=== PATIENT | female | born 1950 | race Caucasian/White ===

== ENCOUNTER 2021-12-20 18:33 | Emergency (ER) | payer OTHER ==
--- OUTSIDE RECORDS SUMMARY | 2021-12-20 18:37 | XMS REPORT | Continuity of Care Document ---
:1950 Author Organization [facility] t Address [address] [place] [address] Dr. Hussein [address] [place] [address] Care Team Providers Name Role Phone Rodriguez Marley Primary Care Physician Lyric GONGORA Attending Clinician Unavailable Doctor Unassigned, Name Attending Clinician Unavailable VAUGHN Attending Clinician Unavailable JEANNETTE Attending Clinician Unavailable NORIS Attending Clinician Unavailable Attending Clinician Unavailable MD MIKE Attending Clinician Unavailable IRIS Attending Clinician Unavailable Lyric Gongora MD Attending Clinician Only, Test Attending Clinician Unavailable Jose Patel MD Attending Clinician JORDAN Attending Clinician Unavailable VIOLETA ALONSO Attending Clinician Unavailable DALTON Attending Clinician Unavailable BELL Attending Clinician Unavailable Lyric GONGORA Admitting Clinician Unavailable Admitting Clinician Unavailable MD NATHALIE Admitting Clinician Unavailable Lyric Gongora MD Admitting Clinician VYAN Admitting Clinician Unavailable VIOLETA ALONSO Admitting Clinician Unavailable DALTON Admitting Clinician Unavailable BELL Admitting Clinician Unavailable Payers Payer Name Policy Type Policy Number Effective Date Expiration Date S reza MEDICARE PART A [id number] 2017 \T\ B 00:00:00 [place] AND [id number] 2017 [employer] 00:00:00 [facility] [id number] Problems Condition Condition Condition Status Onset Resolution Last Treating Co mments Source Name Details Category Date Date Treatment Clinician Date Acute Acute Disease Active 2018-09 Univers diastolic diastolic 2-10 [place]y [place] heart 00 Medical failure failure Branch Atrial Atrial Disease Active 2018-09 Univers fibrillati fibrillati 2-09 it y of on with on with 00:00: [place] rapid rapid Medical ventricula ventricula Br anch r response r response Other Other Disease Active 2018-09 Univers chest pain chest pain 2- it y of 00:00: [place] 00 Medical Branch Acute Acute Disease Active 2018-09 Univers bronchitis bronchitis 2 it y of due to due to 00:00: [place] other other 00 Medical specified specified Bran ch organisms organisms Type 2 Type 2 Disease Active 2018-09 Univers diabetes diabetes 2- ity of mellitus mellitus 00:00: [place] without without 00 Medical complicati complicati Br anch on, on, without without long-term long-term current current use of use of insulin insulin Essential Essential Disease Active 2018-09 Uni vers hypertensi hypertensi 2- it y of on on 00:00: [place] 00 Medical Branch Morbid Morbid Disease Active 2018-09 Univers obesity obesity 2 ity of 00:00: [place] 00 Medical Branch 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 10-01 ity of 00:00: [place] 00 Medical Branch Left ankle Left ankle Disease Active U nivers pain pain 06-03 ity of 00:00: [place] 00 Medical Branch Allergies, Adverse Reactions, Alerts Allergy Allergy Status Severity Reaction(s) Onset Inactive Treating Comm ents Source Name Type Date Date Clinician TRAMADOL DRUG Active Rash 2018-09 Univers -ACETAMI - ity of NOPHEN 00:00: [place] 00 Medical Branch Tramadol Propensi Active Rash 2018-09 Univer s -Acetami ty to 10-01 ity of nophen adverse 00:00: [place] reaction 00 Medical s Branch Penicill Propensi Active Rash Unknown, Univ ers ins ty to 06-03 has not ity of adverse 00:00: had in a [place] reaction 00 long time Medic al s 06/03/15 Branch PENICILL Drug Active Rash Univers INS Class 06-03 ity of 00:00: [place] 00 Medical Branch Social History Social Habit Start Date Stop Date Quantity Comments Source Exposure to Not sure [facility] SARS-CoV-2 [place] Medical (event) Branch Alcohol intake 2020-07-29 2020-07-29 Current University of 00:00:00 00:00:00 non-drinker of [facility] alcohol Branch (finding) History [facility] 2019-08-02 2019-08-02 2 University o f Transport Non-Med 00:00:00 00:00:00 [place] M edical Branch History [facility] 2019-08-02 2019-08-02 5 University o f Financial 00:00:00 00:00:00 [place] [facility] History [facility] Food 2019-08-02 2019-08-02 1 Univers ity of Worry 00:00:00 00:00:00 [place] [facility] History [facility] Food 2019-08-02 2019-08-02 1 Univers ity of Scarcity 00:00:00 00:00:00 [place] [facility] History [facility] 2019-08-02 2019-08-02 2 University o f Transport Med 00:00:00 00:00:00 [place] Medic [facility] Tobacco use and 2015-06-03 2015-06-03 Never used Universit y of exposure 00:00:00 00:00:00 [facility] Sex Ass[birth year] Universit y of 00:00:00 00:00:00 [facility] Smoking Status Start Date Stop Date Source Never smoker [facility] Medications Ordered Filled Start Stop Current Ordering Indication Dosage Frequency Signature Comments Components Source Medication Medication Date Date Medication? Clinician (SIG) Name Name METFORMIN 2019-09 Yes Take by Univ ers HCL 1-18 mouth. ity of (METFORMIN 16:15: [place] ORAL) [address] [place] [address] Branch atorvastati 2019-09 Yes 20mg Take 20 mg Univers n (LIPITOR) 1-18 by mouth ity of 20 mg 16:15: at [place] tablet 51 bedtime. Medical Branch ASPIRIN 2019-09 Yes 81mg Take 81 mg Univ ers ORAL 1-18 by mouth. ity of 16:15: [address] biotin 2019-09 Yes Take by Univers 1,000 mcg 1-18 mouth. ity of Chew 16:15: [address] water for 2019-09 Yes PRN, Univers irrigation 1-18 Starting ity o f irrigation 14:44: Wed [place] solution 00 07/28/20 Medical at 0844, Branch Until Discontinu ed, Routine, Intra-op simethicone 2019-09 Yes PRN, Univer s (GAS RELIEF 1-18 Starting ity of (SIMETHICON 14:44: Sun [place] E)) 40 00 07/28/20 Medical mg/0.6 mL at 0844, Branch drops Until Discontinu ed, Routine, Intra-op lactated 2019-09 2020- No 1000mL at 42 Unive rs ringers IV 1-18 11-18 mL/hr, ity of infusion 14:00: 13:53 1,000 mL, Rajat as 1,000 mL 00 :00 IV Medical Infusion, Branch ONCE, 1 dose, Sun07/28/20 at 0800, Routine, DSU Pre-op METFORMIN 2019-09 Yes Take by Univ ers HCL 1-18 mouth. ity of (METFORMIN 10:15: [place] ORAL) 51 Medical Branch atorvastati 2019-09 Yes 20mg Take 20 mg Univers n (LIPITOR) 1-18 by mouth ity of 20 mg 10:15: at [place] tablet 51 bedtime. Medical Branch ASPIRIN 2019-09 Yes 81mg Take 81 mg Univ ers ORAL 1-18 by mouth. ity of 10:15: [address] biotin 2019-09 Yes Take by Univers 1,000 mcg 1-18 mouth. ity of Chew 10:15: [address] METFORMIN 2019-09 Yes Take by Univ ers HCL 1-16 mouth. ity of (METFORMIN 15:48: [place] ORAL) 12 Medical Branch atorvastati 2019-09 Yes 20mg Take 20 mg Univers n (LIPITOR) 1-16 by mouth ity of 20 mg 15:48: at [place] tablet 12 bedtime. Medical Branch ASPIRIN 2019-09 Yes 81mg Take 81 mg Univ ers ORAL 1-16 by mouth. ity of 15:48: [place] [address] Medical [place] biotin 2019-09 Yes Take by Univers 1,000 mcg 1-16 mouth. ity of Chew 15:48: [address] METFORMIN 2018-09 Yes Take by Univ ers HCL 2-17 mouth. ity of (METFORMIN 05:00: [place] ORAL) 38 Medical Branch atorvastati 2018-09 Yes 20mg Take 20 mg Univers n (LIPITOR) 2-17 by mouth ity of 20 mg 05:00: at [place] tablet 38 bedtime. Medical Branch ASPIRIN 2018-09 Yes 81mg Take 81 mg Univ ers ORAL 2-17 by mouth. ity of 05:00: [place] [address] Medical Branch biotin 2018- Yes Take by Univers 1,000 mcg 2-17 mouth. ity of Chew 05:00: [place] [address] Medical Branch METFORMIN 2018-09 Yes Take by Univ ers HCL 2-17 mouth. ity of ([facility]FORMIN [facility]:00: [place] [facility] at[facility] 2018-09 Yes 20mg Take 20 mg Univers n (LIPITOR) 2-17 by mouth ity of 20 mg 05:00: at [place] tablet 38 bedtime. Medical Branch ASPIRIN 2018-09 Yes 81mg Take 81 mg Univ ers ORAL 2-17 by mouth. ity of 05:00: [place] [address] Medical Branch biotin 2018- Yes Take by Univers 1,000 mcg 2-17 mouth. ity of Chew 05:00: [address] METFORMIN 2018-09 Yes Take by Univ ers HCL 2-17 mouth. ity of (METFORMIN 05:00: [place] [address] Branch atorvastati 2018-09 Yes 20mg Take 20 mg Univers n (LIPITOR) 2-17 by mouth ity of 20 mg 05:00: at [place] tablet bedtime. Medical Branch ASPIRIN 2018-09 Yes 81mg Take 81 mg Univ ers ORAL 2-17 by mouth. ity of 05:00: [place] [address] Medical Branch biotin 2018-09 Yes Take by Univers 1,000 mcg 2-17 mouth. ity of Chew 05:00: [address] Branch insulin 2018- Yes [id number] 15U inject 15 Univers glargine 2-17 Units ity of 100 unit/mL 00:00: under the [place] injection 00 skin Medical daily. Branch insulin 2019- Yes [id number] 15U inject 15 Univers glargine 2-17 Units ity of 100 unit/mL 00:00: under the [place] injection 00 skin Medical daily. Branch insulin 2019- Yes [id number] 15U inject 15 Univers glargine 2-17 Units ity of 100 unit/mL 00:00: under the [place] injection 00 skin Medical daily. Branch insulin 2018- Yes [id number] 15U inject 15 Univers glargine 2-17 Units ity of 100 unit/mL 00:00: under the [place] injection 00 skin Medical daily. Branch insulin 2018-09 Yes [id number] 15U inject 15 Univers glargine 2-17 Units ity of 100 unit/mL 00:00: under the [place] injection 00 skin Medical daily. [place] insulin 2018-09 Yes [id number] 15U inject 15 Univers glargine 2-17 Units ity of 100 unit/mL 00:00: [place] the [place] injection 00 skin Medical daily. [place] ipratropium 2018-09 Yes [id number] 3mL Inhale 3 Univers -albuterol 2-16 mL 4 ity of 0.5 mg-3 00:00: (four) [place] mg(2.5 mg 00 times Medical base)/3 mL daily as Branc h nebulizer needed for solution Wheezing, Shortness of Breath, Bronchospa sm or Chest tightness. ipratropium 2018-09 Yes [id number] 3mL Inhale 3 Univers -albuterol 2-16 mL 4 ity of 0.5 mg-3 00:00: (four) [place] mg(2.5 mg 00 times Medical base)/3 mL daily as Branc h nebulizer needed for solution Wheezing, Shortness of Breath, Bronchospa sm or Chest tightness. ipratropium 2018-09 Yes [id number] 3mL Inhale 3 Univers -albuterol 2-16 mL 4 ity of 0.5 mg-3 00:00: (four) [place] mg(2.5 mg 00 times Medical base)/3 mL daily as Branc h nebulizer needed for solution Wheezing, Shortness of Breath, Bronchospa sm or Chest tightness. ipratropium 2018-09 Yes [id number] 3mL Inhale 3 Univers -albuterol 2-16 mL 4 ity of 0.5 mg-3 00:00: (four) [place] mg(2.5 mg 00 times Medical base)/3 mL daily as Branc h nebulizer needed for solution Wheezing, Shortness of Breath, Bronchospa sm or Chest tightness. ipratropium 2018-09 Yes [id number] 3mL Inhale 3 Univers -albuterol 2-16 mL 4 ity of 0.5 mg-3 00:00: (four) [place] mg(2.5 mg 00 times Medical base)/3 mL daily as Branc h nebulizer needed for solution Wheezing, Shortness of Breath, Bronchospa sm or Chest tightness. ipratropium 2019- Yes [id number] 3mL Inhale 3 Univers -albuterol 2-16 mL 4 ity of 0.5 mg-3 00:00: (four) [place] mg(2.5 mg 00 times Medical base)/3 mL daily as Branc h nebulizer needed for solution Wheezing, Shortness of Breath, Bronchospa sm or Chest tightness. amLODIPine Yes TAKE 1 Unive rs 10 mg 6-02 TABLET BY ity of tablet 00:00: MOUTH ONCE [place] DAILY Medical Branch amLODIPine Yes TAKE 1 Unive rs 10 mg 6-02 TABLET BY ity of tablet 00:00: MOUTH ONCE [place] DAILY Medical Branch amLODIPine Yes TAKE 1 Unive rs 10 mg 6-02 TABLET BY ity of tablet 00:00: MOUTH ONCE [place] DAILY Medical Branch amLODIPine Yes TAKE 1 Unive rs 10 mg 6-02 TABLET BY ity of tablet 00:00: MOUTH ONCE [place] DAILY Medical Branch amLODIPine Yes TAKE 1 Unive rs 10 mg 6-02 TABLET BY ity of tablet 00:00: MOUTH ONCE [place] DAILY Medical Branch amLODIPine Yes TAKE 1 Unive rs 10 mg 6-02 TABLET BY ity of tablet 00:00: MOUTH ONCE [place] DAILY [facility] Branch Immunizations Ordered Filled Immunization Date Status Comments [facility] e Immunization Name Name Influenza Virus 2019-06-24 Completed Universit y of Vaccine 00:00:00 [facility] Pneumococcal 2019-06-24 Completed University o f Polysaccharide, 00:00:00 [place] Med ical PPSV23 (PNEUMOVAX) Branch Influenza Virus 2019-06-24 Completed Universit y of Vaccine 00:00:00 [facility] Pneumococcal 2019-06-24 Completed University o f Polysaccharide, 00:00:00 [place] Med ical PPSV23 (PNEUMOVAX) Branch Influenza Virus 2019-06-24 Completed Universit y of Vaccine 00:00:00 [facility] Pneumococcal 2019-06-24 Completed University o f Polysaccharide, 00:00:00 [place] Med ical PPSV23 (PNEUMOVAX) Branch Influenza Virus 2019-06-24 Completed Universit y of Vaccine 00:00:00 [facility] Pneumococcal 2019-06-24 Completed University o f Polysaccharide, 00:00:00 [place] Med ical PPSV23 (PNEUMOVAX) Branch Influenza Virus 2019-06-24 Completed Universit y of Vaccine 00:00:00 [facility] Pneumococcal 2019-06-24 Completed University o f Polysaccharide, 00:00:00 [facility] [place] [facility] ical PPSV23 (PNEUMOVAX) Branch Influenza Virus 2019-06-24 Completed Universit y of Vaccine 00:00:00 [facility] Pneumococcal 2019-06-24 Completed University o f Polysaccharide, 00:00:00 [facility] [place] [facility] ical PPSV23 (PNEUMOVAX) Branch Vital Signs Vital Name Observation Time Observation Value Comments Source Systolic blood 2020-07-28 15:53:00 127 mm[Hg] Univer sity of pressure [facility] Diastolic blood 2020-07-28 15:53:00 59 mm[Hg] Unive rsity [facility] Heart rate 2020-07-28 15:53:00 63 /min [facility] Respiratory rate 2020-07-28 15:53:00 16 /min [facility] saturation in 2020-07-28 15:53:00 95 /min [facility] blood by [facility] Pulse oximetry Branch Body temperature 2020-07-28 15:31:[address] [facility] Body height 2020-07-26 15:00:00 152.4 cm [facility] Body weight 2020-07-26 15:00:00 100.245 kg [facility] BMI 2020-07-26 15:00:00 43.16 kg/m2 [facility] Procedures Procedure Date / Time Performing Clinician Source Performed AUTHORIZATION FOR 2021-11-09 06:01:00 [facility]igned[facility] COLONOSCOPY (ENDO) 2020-07-28 15:06:38 Jeremy Marley [facility] EGD (ENDO) 2020-07-28 14:48:20 Jeremy Marley [place] [facility] [place] COVID-19 (ID NOW RAPID 2020-07-27 19:06:00 Alla Gongora [facility] DSU PRE-OP 2020-07-22 06:01:00 Doctor Unassigned, No Univer sity [facility] DSU PRE-OP 2020-06-30 05:01:00 Doctor Unassigned, No Univer sity [facility] REFERRAL- 2019-10-02 06:01:00 Doctor Unassigned, No [facility] REQUEST/RESPONSE [facility] Encounters Start End Encounter Admission Attending Care Care Encounter Source Date/Time Date/Time Type Type Clinicians Facility Department ID 2021-07-09 Outpatient R JOVITA [facility] [id number] [facility] 00:19:03 ALLA Elizalde ity [facility] 2021-11-09 2021-11-09 Orders Doctor MAAME [id number] Univers 00:00:00 00:00:00 Only Unassigned, NIRAV [id number] ity [facility] [id number] Rajat as [id number] [address] 2021-07-21 2021-07-21 Outpatient VAUGHN [facility] [id number] [place] 00:00:00 00:00:00 , MELISSA [address] [place] 2021-06-19 2021-06-19 Emergency MACHADO, [facility] [id number] [place] 00:00:00 00:00:00 CHIDI 765 Method i 2021-06-13 2021-06-13 Outpatient [facility] [id number] [place] 00:00:00 00:00:00 645 Method i 2021-06-01 2021-06-01 Outpatient NORIS, [facility] [id number] [place] 00:00:00 00:00:00 AUBREY 327 Method i 2021-02-16 2021-02-19 Inpatient MANNING, [facility] [id number] [place] 00:00:00 00:00:00 DOMINIQUE 059 Method i 2020-11-18 2020-11-18 Outpatient NORIS, [facility] [id number] [place] 00:00:00 00:00:00 AUBREY 749 Method i 2020-11-07 2020-11-07 Outpatient IRIS, [facility] [id number] [place] 00:00:00 00:00:00 CELESTINO [place] [facility] 2020-10-17 2020-10-17 Outpatient [facility] [id number] [place] 00:00:00 00:00:[address] 2020-07-28 2020-07-28 [facility] [id number] Univers 07:30:00 10:12:00 Encounter Alla elizalde [id number] ity of [place] [id number] [facility] [id number] [facility] 071 Branch 2020-07-27 2020-07-27 Laboratory Only, Adc Test [facility] 1.2.840. [id number] Univers 13:01:58 13:16:58 Only Alla Gongora 350.1.1 3.10 ity of [place] [id number] [facility] [id number] [facility] 353 Branch 2020-07-27 2020-07-27 Outpatient R [facility] [id number] Univers 13:15:00 13:15:00 [id number] ity of [facility] 2020-07-27 2020-07-27 Outpatient R [facility] [id number] Univers 13:15:00 13:15:00 ALLA Elizalde [facility] 2020-07-22 2020-07-22 Orders Doctor ISABEL [id number] Univers 00:00:00 00:00:00 Only Unassigned, NIRAV [id number] [facility] 4.2.7.2.686 Rajat [id number] [facility] 009 Branch 2020-07-06 2020-07-06 Outpatient R [facility] [id number] Univers 11:30:00 11:30:00 [id number] ity of [facility] 2020-07-06 2020-07-06 Outpatient R [facility] [id number] Univers 11:30:00 11:30:00 ALLA Elizalde [facility] 2019-11-03 2019-11-03 Outpatient NORIS [facility] [id number] [place] 00:00:00 00:00:00 A[address]Y [address] 2019-10-28 2019-10-28 Letter JorgeMAAME [id number] Univers 00:00:00 00:00:00 (Out) Tyree GASTELUM [id number] ity of HOSPITAL [id number] Rajat as [id number] [facility] 043 Branch 2019-10-02 2019-10-02 Orders Doctor MAAME [id number] [place] [address] 00:00:00 00:00:00 Only Unassigned, NIRAV [id number] ity of [place] [facility] [id number] Rajat as [id number] [facility] 009 Branch 2019-09-05 2019-09-12 [facility] [id number] [place] 00:00:00 00:00:00 VIK Dyson Method i 2019-08-25 2019-09-02 Inpatient 3 CELESTE, [facility] [id number] [facility] 23:05:00 12:25:00 VIOLETA 63484 2019-09-01 2019-09-02 Outpatient [facility] [id number] Memoria 17:08:00 05:59:59 r [facility] 2019-08-18 2019-08-25 [facility] [id number] Univers 00:45:10 22:15:00 PEDRO LUIS [facility] 2019-08-11 2019-08-11 [facility] [id number] [facility] 15:40:56 23:59:00 ARMINDA [facility] Results Test Description Test Time Test Comments Results Result Comments Source SARS-CoV-2 (COVID-19) RNA [Presence] in Respiratory sp ecimen by 2021-02-16 21:52:50 YOCASTA with probe detection Test Item Value Reference Range Interpretation Comme nts SARS-CoV-2 (COVID-19) RNA [Presence] in Respiratory Not detected No t-Detected specimen by YOCASTA with probe detection (test code = 93857-1) Whether patient is employed in a healthcare setting (test code = 01058-1) Whether the patient has symptoms related to condition of interest (test code = 16081-3) Patient was hospitalized because of this condition (test code = 27590-7) Whether the patient was admitted to intensive care unit (ICU) for condition of interest (test code = 75505-1) Whether patient resides in a congregate care setting (test code = 42864-3) COVID-19 (ID NOW RAPID TESTING)2020-07-27 19:37:00 Test Item Value Reference Range Interpretation Comments SARS-CoV-2 Rapid ID NOW Not Detected Not Detected (test code = 27440-0) MAVERICK (test code = MAVERICK) ID NOW COVID-19 Assay is an isothermal nucleic acid amplification test intended for the qualitative detection of nucleic acid from SARS-CoV-2 viral RNA in nasopharyngeal ([employer] RO[employer]) specimens. It is used under Emergency Use Authorization (EUA) by FDA. The limit of detection (LOD) of the assay is 125 Genome Equivalents/mL. A positive result is indicative of the presence of SARS-CoV-2 RNA. ?Clinical correlation with patient history and other diagnostic information is necessary to determine patient infection status. A negative (Not Detected) result does not preclude SARS-CoV-2 infection. In patients with clinical symptoms and other tests that are consistent with SARS-CoV-2 infection, negative results should be treated as presumptive negative and a new specimen should be tested with alternative PCR molecular test. Invalid: Please collect a new specimen for repeat patient testing if clinically indicated. Lab Interpretation Normal (test code = 13862-9) [facility]
--- NOTE | 2021-12-20 20:36 | ER ---
Nurse's Notes [facility] Name: Kristy Lechuga Age: 71 yrs Sex: Female : 1950 Arrival Date: 12/20/2021 Time: 18:37 Bed Waiting Private MD: Diagnosis: Abrasion, left lesser toe(s) Presentation: 12/20 19:18 Chief complaint: Patient states: she went to a nail salon had a pedicure and had the bb tip of her middle left toe cut which is continuing to bleed pt states she is on Eliquis. Coronavirus screen: At this time, the client does not indicate any symptoms associated with coronavirus-19. Ebola Screen: No symptoms or risks identified at this time. Initial Sepsis Screen: Does the patient meet any 2 criteria? No. Patient's initial sepsis screen is negative. Does the patient have a suspected source of infection? No. Patient's initial sepsis screen is negative. Risk Assessment: Do you want to hurt yourself or someone else? Patient reports no desire to harm self or others. Onset of symptoms was December 20, 2021. 19:18 Method Of Arrival: Ambulatory 19:18 Acuity: BALWINDER 5 Triage Assessment: 19:19 General: Appears in no apparent distress. Behavior is calm, cooperative. Pain: bb Complains of pain in left foot. Neuro: Level of Consciousness is awake, Oriented to person, place, time, situation. Cardiovascular: Capillary refill < 3 seconds Patient's skin is warm and dry. Respiratory: Airway is patent Respiratory effort is even, unlabored, Respiratory pattern is regular. GI: No signs and/or symptoms were reported involving the gastrointestinal system. Derm: Wound noted left middle toe. Musculoskeletal: Circulation, motion, and sensation intact. Historical: - Allergies: 19:19 PENICILLINS; bb 19:19 Ultracet; bb - Immunization history:: Pfizer x 3. - Social history:: Smoking status: Patient denies any tobacco usage or history of. Screenin:29 Abuse screen: Denies threats or abuse. Nutritional screening: No deficits noted. bb Tuberculosis screening: No symptoms or risk factors identified. Fall Risk None identified. Assessment: 20:29 Reassessment: No changes from previously documented assessment. Roge Dos Santos BLEMISH REMOVER in triage for pt care. 20:47 Reassessment: Patient is alert, oriented x 3, equal unlabored respirations, skin bb warm/dry/pink. pt verbalized understanding of and agrees to plan of care discharge instructions given pt ambulated with assistance to exit accompanied by family. Vital Signs: 19:18 BP 119 / 61; Pulse 57; Resp 16 S; Temp 97.9(O); Pulse Ox 100% on R/A; Weight 90.72 kg bb (R); Height 4 ft. 11 in. (149.86 cm) (R); Pain 5/10; 19:18 Body Mass Index 40.39 (90.72 kg, 149.86 cm) bb ED Course: 18:37 Patient arrived in ED. ja2 19:19 Triage completed. bb 19:19 Arm band placed on Patient placed in waiting room, Patient notified of wait time. bb Family accompanied patient. 19:32 Roge Dos Santos NP is PHCP. pm1 19:32 César Draper MD is Attending Physician. pm1 20:29 Patient has correct armband on for positive identification. bb 20:29 No provider procedures requiring assistance completed. Patient did not have IV access bb during this emergency room visit. 20:31 Dressings: pressure dressing applied to left middle toe by Roge Dos Santos NP. bb Administered Medications: No medications were administered Outcome: 20:36 Discharge ordered by . pm1 20:47 Discharged to home ambulatory, with family. bb 20:47 Condition: stable 20:47 Discharge instructions given to patient, Instructed on discharge instructions, follow up and referral plans. medication usage, Demonstrated understanding of instructions, follow-up care, medications, Prescriptions given X 1. 20:48 Patient left the ED. bb Signatures: Kristy Prasad, RN RN bb Roge Dos Santos NP BLEMISH REMOVER pm1 Meeta Lopez
--- NOTE | 2021-12-20 20:36 | EDPHYS ---
Physician Documentation [facility] Name: Kristy Lechuga Age: 71 yrs Sex: Female : 1950 Arrival Date: 12/20/2021 Time: 18:37 Bed Waiting Private MD: ED Physician César Draper HPI: 12/20 20:36 This 71 yrs old Female presents to ER via Ambulatory with complaints of Toe Injury. pm1 20:36 The patient presents with Bleeding from left middle toe due to clipping of toenail. The pm1 complaints affect the left third toe. 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 Onset: The symptoms/episode began/occurred just prior to arrival. Modifying factors: The symptoms are alleviated by Pressure to injury. Associated signs and symptoms: The patient has no apparent associated signs or symptoms, Pertinent negatives: numbness, tingling. Severity of symptoms: in the emergency department the symptoms have improved. The patient has not experienced similar symptoms in the past. The patient has not recently seen a physician. Patient with history of taking a blood thinner. Historical: - Allergies: 19:19 PENICILLINS; bb 19:19 Ultracet; bb - Immunization history:: Pfizer x 3. - Social history:: Smoking status: Patient denies any tobacco usage or history of. ROS: 20:36 MS/extremity: Positive for left third toe, abrasion, Negative for decreased range of pm1 motion, deformity. 20:36 Constitutional: Negative for fever, chills, and weight loss, Cardiovascular: Negative for chest pain, palpitations, and edema, Respiratory: Negative for shortness of breath, cough, wheezing, and pleuritic chest pain, Skin: Negative for injury, rash, and discoloration, Neuro: Negative for headache, weakness, numbness, tingling, and seizure. 20:36 All other systems are negative. Exam: 20:36 Constitutional: This is a well developed, well nourished patient who is awake, alert, pm1 and in no acute distress. Head/Face: Normocephalic, atraumatic. 20:36 Cardiovascular: Exam negative for acute changes, Rate: normal, Rhythm: regular, Pulses: no pulse deficits are appreciated. 20:36 Respiratory: Exam negative for acute changes, respiratory distress, shortness of breath. 20:36 Skin: Appearance: normal except for affected area, injury, abrasion(s), very small abrasion noted, of the left third toe. 20:36 Neuro: Exam negative for acute changes, Orientation: is normal, Mentation: is normal, Motor: is normal, moves all fours. Vital Signs: 19:18 BP 119 / 61; Pulse 57; Resp 16 S; Temp 97.9(O); Pulse Ox 100% on R/A; Weight 90.72 kg bb (R); Height 4 ft. 11 in. (149.86 cm) (R); Pain 5/10; 19:18 Body Mass Index 40.39 (90.72 kg, 149.86 cm) bb MDM: 20:24 Patient medically screened. pm1 20:35 Data reviewed: vital signs. Data interpreted: Pulse oximetry: on room air is 100 %. pm1 Interpretation: normal. Counseling: I had a detailed discussion with the patient and/or guardian regarding: the historical points, exam findings, and any diagnostic results supporting the discharge/admit diagnosis, the need for outpatient follow up, to return to the emergency department if symptoms worsen or persist or if there are any questions or concerns that arise at home. Administered Medications: No medications were administered Disposition: 12/21 06:39 Co-signature as Attending Physician, César Draper MD. [email or web address] Disposition Summary: 12/20/21 20:36 Discharge Ordered Location: Home pm1 Problem: new pm1 Symptoms: have improved pm1 Condition: Stable pm1 Diagnosis - Abrasion, left lesser toe(s) pm1 Followup: pm1 - With: Emergency Department - When: As needed - Reason: Worsening of condition Followup: pm1 - With: Private Physician - When: 2 - 3 days - Reason: Recheck today's complaints, Continuance of care, Re-evaluation by your physician Discharge Instructions: - Discharge Summary Sheet pm1 - Abrasion pm1 Forms: - Medication Reconciliation Form pm1 - Thank You Letter pm1 - Antibiotic Education pm1 - Prescription Opioid Use pm1 Prescriptions: - Bactrim DS 800-160 mg Oral Tablet - take 1 tablet by ORAL route every 12 hours for 10 days; 20 tablet; Refills: 0, pm1 Product Selection Permitted Signatures: Kristy Prasad RN RN bb Roge Dos Santos NP POST SPLITTER pm1 César Draper MD MD 7
[2021-12-21 05:52] VITALS: BP 119/61; TEMP 97.9; O2SAT 100
== END 2021-12-20 20:48 | disposition home or self-care (01) ==
LOC: ER 18:33
DX: S90.415A Abrasion, left lesser toe(s), initial encounter (principal); Z88.0 Allergy status to penicillin; Z88.8 Allergy status to other drugs, medicaments and biological substances
CPT/HCPCS: 99282